=== PATIENT | male | born 1995 | race Caucasian/White ===

== ENCOUNTER 2018-12-23 16:22 | Emergency (ER) | payer BC ==
[2018-12-23 16:39] VITALS: BP 131/82; PULSE 90; TEMP 99.6; BMI 25.8
--- NOTE | 2018-12-23 16:57 | PDOC ---
Documentation entered by Edgardo Penny SCRIBE, acting as scribe for Bertha Linares DO. Bertha Linares DO: This documentation has been prepared by the Hemalatha peters Xhesika, SCRIBE, under my direction and personally reviewed by me in its entirety. I confirm that the documentation accurately reflects all work, treatment, procedures, and medical decision making performed by me. History of Present Illness - General Chief Complaint: Respiratory Stated Complaint: PNEUMONIA History Source: Patient, Parent(s) Exam Limitations: No Limitations - History of Present Illness Initial Comments: 12/23/18 16:42 The patient is a 23 year old male, with no significant past medical history of who presents to the emergency department for a chest x-ray. The patient woke up last night with a sore throat and subjective fever. As per mother, they went to [facility] prior to coming to the ED and the patient was diagnosed with strep throat and pneumonia (started on antibiotics). The patient states he endorses body aches, fevers, neck pain and cough with phlegm, secondary to his symptoms. 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 The patient denies chest pain, shortness of breath, headache or dizziness. The patient denies chills, nausea, vomit, diarrhea or constipation. The patient denies dysuria, frequency, urgency or hematuria. Allergies: NKDA Past surgical history:None reported Social history: None reported PCP: Dr. Malcolm Nice Past History - Past Medical History Allergies/Adverse Reactions: Allergies Allergy/AdvReac Type Severity Reaction Status Date / Time No Known Allergies Allergy Verified 12/23/18 16:24 Home Medications: Ambulatory Orders Amoxicillin/Potassium Clav [Augmentin 875-125 Tablet] 1 each PO BID 12/23/18 Azithromycin [Zithromax -] 250 mg PO UTDICT 12/23/18 Prednisone [Prednisone 50 MG TABLETS] 50 mg PO DAILY 12/23/18 - Suicide/Smoking/Psychosocial Hx Smoking History: Never smoked Have you smoked in the past 12 months: No Hx Alcohol Use: No Drug/Substance Use Hx: No Substance Use Type: None Review of Systems - Review of Systems Able to Perform ROS?: Yes Comments:: 12/23/18 16:43 GENERAL/CONSTITUTIONAL: (+) subjective fever. (+) body aches. No weakness. HEAD, EYES, EARS, NOSE AND THROAT: No change in vision. No ear pain or discharge. (+) sore throat. CARDIOVASCULAR: No chest pain or shortness of breath. RESPIRATORY:(+) cough. No wheezing, or hemoptysis. GASTROINTESTINAL: No nausea, vomiting, diarrhea or constipation. GENITOURINARY: No dysuria, frequency, or change in urination. MUSCULOSKELETAL:(+) neck pain. No joint or muscle swelling or pain. No back pain. SKIN: No rash NEUROLOGIC: No headache, vertigo, loss of consciousness, or change in strength/ sensation. ENDOCRINE: No increased thirst. No abnormal weight change. HEMATOLOGIC/LYMPHATIC: No anemia, easy bleeding, or history of blood clots. ALLERGIC/IMMUNOLOGIC: No hives or skin allergy. *Physical Exam - Vital Signs Last Vital Signs Temp Pulse Resp BP Pulse Ox 99.6 F 90 16 131/82 98 12/23/18 16:23 12/23/18 16:23 12/23/18 16:23 12/23/18 16:23 12/23/18 16:23 - Physical Exam Comments: 12/23/18 16:44 ADULT EXAM GENERAL: Awake, alert, and fully oriented, in no acute distress HEAD: No signs of trauma EYES: PERRLA, EOMI, sclera anicteric, conjunctiva clear ENT: (+) erythema and exudates to posterior oropharynx. (+) sinus congestion. Auricles normal inspection, hearing grossly normal, nares patent. Moist mucosa NECK: Normal ROM, supple, no lymphadenopathy, JVD, or masses LUNGS: Breath sounds equal, clear to auscultation bilaterally. No wheezes, and no crackles HEART: Regular rate and rhythm, normal S1 and S2, no murmurs, rubs or gallops ABDOMEN: Soft, nontender, normoactive bowel sounds. No guarding, no rebound. No masses EXTREMITIES: Normal range of motion, no edema. No clubbing or cyanosis. No cords, erythema, or tenderness NEUROLOGICAL: Cranial nerves II through XII grossly intact. Normal speech, normal gait SKIN: Warm, Dry, normal turgor, no rashes or lesions noted. 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 and told he has strep throat and pna -started on azithromycin and augmenting -mother brought the patient to the ED for an xray -pt given prednisone and motrin at urgent care -no coarse bs on exam -will obtain xray 12/23/18 16:55 pt with pharyngitis on exam, already started on abx cxr with poss small infiltrate already on abx nontoxic in appearance stable for dc to home *DC/Admit/Observation/Transfer Diagnosis at time of Disposition: Strep pharyngitis - Discharge Dispostion Disposition: HOME Condition at time of disposition: Stable Decision to Admit order: No - Referrals Referrals: Malcolm Nice MD [Primary Care Provider] - - Patient Instructions Printed Discharge Instructions: DI for Strep Throat Additional Instructions: Please drink plenty of fluids. Please take all antibiotics as they were prescribed by urgent care. Please take tylenol or motrin as needed for fevers/ body aches. Please take acidophilus with your antibiotics. Please return to the ED with any further concerns or complaints. - Post Discharge Activity - Attestations Physician Attestion: 12/23/18 16:56 I, Dr. Bertha Linares, DO, attest that this document has been prepared under my direction and personally reviewed by me in its entirety. I further attest, that it accurately reflects all work, treatment, procedures and medical decision -making performed by me.
== END 2018-12-23 17:04 | disposition home or self-care (01) ==
LOC: FER 16:22
DX: J02.0 Streptococcal pharyngitis (principal); B95.5 Unspecified streptococcus as the cause of diseases classified elsewhere
CPT/HCPCS: 71046-TC-FY; 99282-25